=== PATIENT | male | born 1950 | race Caucasian/White ===

== ENCOUNTER → 2018-01-05 14:09 | Outpatient (REF) | payer MEDICARE, OTHER, SELFPAY | LOC: LAB 14:09 | PROVIDERS: Visit Provider Otolaryngology | DX: J32.4 Chronic pansinusitis (principal); J30.9 Allergic rhinitis, unspecified | CPT/HCPCS: 87070; 87075; 87077; 87186; 87205 ==

== ENCOUNTER → 2018-02-23 14:40 | Outpatient (REF) | payer MEDICARE, OTHER, SELFPAY | LOC: LAB 14:40 | PROVIDERS: Visit Provider Otolaryngology | DX: J32.9 Chronic sinusitis, unspecified (principal) | CPT/HCPCS: 87070; 87075; 87147; 87205 ==

== ENCOUNTER 2019-04-13 07:48 | Day surgery (SDC) | payer MEDICARE, OTHER, SELFPAY ==
[2019-04-13] VITALS (8 sets, daily range): BP systolic 122–161; BP diastolic 62–88; PULSE 59–70; RESP 15–18; TEMP 36.3–37; O2SAT 93–97; BMI 29.3
[2019-04-13] MEDS: LACTATED RINGERS 1,000 ML 42 ML IV (08:29)
--- NOTE | 2019-04-13 09:20 | PM.PREOP ---
Pre-operative Note Interval Note History & Physical reviewed/Exam performed by Physician: Yes Changes to H&P: No H&P completed within 30 days and has changed as indicated here:: There are no changes to history physical examination scanned on file.
[2019-04-13] MEDS: CEFAZOLIN 2 GM/100 ML FROZ.PIGGY IV (09:34)
--- NOTE | 2019-04-13 09:56 | SUR.OPER ---
Supine on padded OR bed, head on pillow, arms secured on padded arm boards at <90 degrees abduction, legs uncrossed, safety belt at thigh, tape over blanket over lower legs.
[2019-04-13] MEDS: BUPIVACAINE LIPOSOME 266 MG/20 ML VIAL INJ (10:00)
--- NOTE | 2019-04-13 10:50 | PM.OP.1 ---
Operative Date/Time/Diagnoses Date of procedure: 04/13/19 Time of procedure: 10:50 Pre-op diagnosis: 1. Left hydrocele. Post-op diagnosis: same Procedure & Clinicians Procedure: 1. Left hydrocelectomy. Same procedure as scheduled: Yes Indications: 1. Left hydrocele Surgeon: Doreen Flores Click Yes if Unassisted: Yes Anesthesia Type: General Operative Notes Findings: Chronically inflamed and thickened left hydrocele sac. 3 mm scrotal ashu. Closure Type: primary Specimen(s): none sent Estimated Blood Loss (mL): 0 Blood products transfused: none Tourniquet time (min): 0 Procedure in detail: The patient was positioned in supine was administered general anesthesia. The lower abdomen genitalia and groin were then prepped and draped in sterile fashion. Local anesthetic was used to infiltrate the midline scrotal raphae a period it incision was made using the needlepoint cautery through the midline raphe Fe and subcutaneous dartos fascia. The tunica vaginalis was then encountered the appropriate plane was developed and dissected bluntly between the tunica vaginalis and the dartos fascia This left scrotal contents were then delivered through the incision. The hydrocele sac was opened using an anterior vertical incision using the needle-tip cautery pen. The contents were drained the scrotal ashu was removed and a distal small testicular appendage was cautery amputated. The redundant hydrocele sac was then effaced using a hand booked folder and stitcher technique. The sac and its edges were then reapproximated using a running horizontal mattress of 2 0 Monocryl. A single stay suture was used to secure the inferior pole of the testicle to the inferior and posterior scrotal wall using the same suture. A solution of 1.33% Exparel was then used to infiltrate and area of the lateral and inferior scrotal wall a 10 mm flat drain was then brought through this stab incision of the drain was trimmed to appropriate length and was position within the scrotal space the drain was then secured to the skin using 2 0 silk. Exparel was then used to infiltrate the dartos fascia and skin of the midline scrotal raphe incision. An additional infiltration with the same anesthetic was utilized in the left cord proximally. The dartos fascia was then closed with a running vertical mattress of 2 0 Monocryl. The skin was reprepped reapproximated using a running horizontal mattress of 4 0 Monocryl. Antibiotic ointment was then applied to the incision line. Dry sterile fluffs were then applied to the scrotum and the patient was fitted with the athletic supporter the drain was placed to bulb self suction The patient was then awakened transferred to a gurney and transported to recovery in stable condition. Complications: none Post-operative Condition: stable Disposition: PACU Plan for aftercare: 1. Discharge home today. 2. Patient instructed to contact my office on 04/16/2019 to report Q 12 hour drain outputs as instructed.
[2019-04-13] MEDS: OXYCODONE/ACETAMINOPHEN 5/325 TABLET 1 TAB PO ×2 (11:14→11:44)
== END 2019-04-13 12:01 | disposition home or self-care (01) ==
PROVIDERS: PCP Neuromusculoskeletal Medicine & OMM; Referring Provider Specialist; Visit Provider Specialist
PROC: (CPT 55040; principal; 2019-04-13 09:15)
DX: N43.3 Hydrocele, unspecified (principal); R97.20 Elevated prostate specific antigen [PSA]; Z80.42 Family history of malignant neoplasm of prostate
CPT/HCPCS: 55040; C9290; J0690; J1100; J2250; J2405; J2704; J3010